=== PATIENT | male | born 1960 | race Caucasian/White ===

== ENCOUNTER → 2017-03-28 | Outpatient (CLI) | payer OTHER ==
[~2017-03-28] MED LIST: NAPR220T70 PO
--- NOTE | 2017-03-28 13:20 | KCIC ---
History: Arthritis. Comparison: None. Findings: Single lateral view of the cervical spine. There is reversal of normal cervical lordosis. There is a 2 mm of anterolisthesis at C3-4, C4-5, and C5-6. Advanced degenerative disc disease seen at C6-7 with almost complete loss of disc space as well as marginal disc osteophyte formation. Multilevel facet degeneration is seen. No prevertebral soft tissue swelling is identified. No erosive changes are identified. AP view of the pelvis. No acute fracture or dislocation is identified. No significant hip degeneration is seen. No erosive changes are identified. PA views of each hand. No erosive changes are identified. No focal soft tissue swelling is seen. No significant degeneration is appreciated. Standing AP views of both knees. No erosive changes are identified. Joint space appears preserved. No significant degeneration is identified. Oblique views of both feet. Erosive changes are seen. No focal soft tissue swelling is identified. Impression: 1. Cervical spinal degeneration. 2. No erosive changes are identified in the visualized joints. Electronically signed by: Mark Mejia MD (03/28/2017 1:17 PM) [place] [id number]
== END | disposition home or self-care (01) ==
LOC: KCIC 11:02
PROVIDERS: ATTEND Internal Medicine Rheumatology
DX: M43.12 Spondylolisthesis, cervical region (principal); M50.323 Other cervical disc degeneration at C6-C7 level
CPT/HCPCS: 72020; 72170; 73120; 73565; 73620

== ENCOUNTER → 2017-12-03 | Outpatient (CLI) | payer OTHER ==
[~2017-12-03] MED LIST changes: +LIDOCAINE WITH 8.4% SOD BICARB 3 ML DISP.SYRIN. INJ; -NAPR220T70 PO
== END | disposition home or self-care (01) ==
LOC: US 08:28
DX: R59.0 Localized enlarged lymph nodes (principal); I10 Essential (primary) hypertension; Z98.890 Other specified postprocedural states
CPT/HCPCS: 19081; 38505; 76942; 88305; 88307; 88341; 88342; 88360

== ENCOUNTER → 2017-12-11 | Outpatient (CLI) | payer OTHER | END | disposition home or self-care (01) | LOC: KCIC US 11:53 | DX: C83.34 Diffuse large B-cell lymphoma, lymph nodes of axilla and upper limb (principal); M79.89 Other specified soft tissue disorders | CPT/HCPCS: 93971 ==

== ENCOUNTER 2017-12-13 08:49 | Day surgery (SDC) | payer OTHER ==
[~2017-12-13 08:49] MED LIST changes: -FLUMAZENIL 0.5 MG/5 ML VIAL. IV; +LIDOCAINE 1% PF 2 ML VIAL. ID; -LIDOCAINE WITH 8.4% SOD BICARB 3 ML DISP.SYRIN.; -MIDAZOLAM HCL/PF 2 MG/2 ML VIAL.; +MORPHINE SULFATE 4 MG/ML DISP.SYRIN. IV; -NALOXONE 0.4 MG/ML VIAL.; +ONDANSETRON PF 4 MG/2 ML VIAL. IV; -fentaNYL PF VIAL 100 MCG/2 ML VIAL; +fentaNYL PF VIAL 100 MCG/2 ML VIAL IV
[2017-12-13 09:24] LABS: ADD MAN DIFF? NO
[2017-12-13 09:27] LABS: BASO # 0.1 x10^3/uL (0.0-0.2); BASO % 1 % (0-3); EOS # 0.1 x10^3/uL (0.0-0.7); EOS % 2 % (0-3); HEMOGLOBIN 16.8 g/dL (13.0-17.5); LYMPH # 1.3 x10^3/uL (1.0-4.8); LYMPH % 19 % (24-48); MEAN CORPUSCULAR HEMOGLOBIN 33 pg (25-35); MEAN CORPUSCULAR HGB CONC 34 g/dL (31-37); MEAN CORPUSCULAR VOLUME 96 fL (79-100); MONO # 0.6 x10^3/uL (0.0-1.1); MONO % 9 % (0-9); NEUT # 4.8 x10^3uL (1.8-7.7); NEUT % 69 % (31-73); PLATELET COUNT 238 x10^3/uL (140-400); RED BLOOD COUNT 5.11 x10^6/uL (4.30-5.70); RED CELL DISTRIBUTION WIDTH 13.3 % (11.5-14.5); WHITE BLOOD COUNT 6.9 x10^3/uL (4.0-11.0)
[2017-12-13] MEDS: IV RINGERS,LACTATED 1000ML 1,000 ML IV ×2 (09:34)
[2017-12-13 09:36] LABS: PROTHROMBIN TIME PATIENT 12.6 SEC (11.7-14.0)
[2017-12-13] MEDS ORDERED: ceFAZolin 2GM PREMIX 2 GM/50 ML BAG IV ×2 (12:00)
[2017-12-13] MEDS ORDERED: DEXAMETHASONE SOD PHOS 20 MG/5 ML VIAL. ×2 (12:08)
[2017-12-13] MEDS ORDERED: fentaNYL PF VIAL 100 MCG/2 ML VIAL ×2 (12:08)
[2017-12-13] MEDS ORDERED: ONDANSETRON PF 4 MG/2 ML VIAL. ×2 (12:08)
[2017-12-13] MEDS ORDERED: SEVOFLURANE 31 TO 60 MINUTES. IH ×2 (12:08)
[2017-12-13] MEDS ORDERED: PROPOFOL 20 ML IV ×2 (12:08)
[2017-12-13] MEDS ORDERED: LIDOCAINE 1% PF 30 ML VIAL. ×2 (12:09)
[2017-12-13] MEDS: HEPARIN SODIUM 5,000 UNIT in IV NORMAL SALINE 500ML BAG 500 ML IRR ×2 (13:45→13:57)
[2017-12-13] MEDS: PROCHLORPERAZINE 10 MG/2 ML VIAL. IV ×2 (14:55)
[2017-12-13] MEDS: fentaNYL PF VIAL 100 MCG/2 ML VIAL IV ×6 (14:56→15:45)
[2017-12-13] MEDS: HYDROcodone/APAP 5/325MG 1 TAB TABLET PO ×2 (15:44)
== END 2017-12-13 16:27 | disposition home or self-care (01) ==
LOC: SURG 08:49
DX: Z45.2 Encounter for adjustment and management of vascular access device (principal); C85.90 Non-Hodgkin lymphoma, unspecified, unspecified site; I10 Essential (primary) hypertension; Z72.89 Other problems related to lifestyle; F17.210 Nicotine dependence, cigarettes, uncomplicated; Z87.442 Personal history of urinary calculi; Z87.39 Personal history of other diseases of the musculoskeletal system and connective tissue; R59.1 Generalized enlarged lymph nodes; Z85.72 Personal history of non-Hodgkin lymphomas
CPT/HCPCS: 36415; 36556; 36561; 71045; 77001; 85025; 85610; 88307; 88341; 88342; 88360; C1788; J0690; J0780; J1100; J1644; J2405; J2704; J3010; J7040; J7120

== ENCOUNTER → 2017-12-13 | Outpatient (CLI) | payer OTHER ==
[~2017-12-13] MED LIST changes: +FLUMAZENIL 0.5 MG/5 ML VIAL. IV; +LIDOCAINE WITH 8.4% SOD BICARB 3 ML DISP.SYRIN.; -LIDOCAINE WITH 8.4% SOD BICARB 3 ML DISP.SYRIN. INJ; +MIDAZOLAM HCL/PF 2 MG/2 ML VIAL.; +NALOXONE 0.4 MG/ML VIAL.; +fentaNYL PF VIAL 100 MCG/2 ML VIAL
[2017-12-13] MEDS: fentaNYL PF VIAL 100 MCG/2 ML VIAL IV (12:15)
[2017-12-13] MEDS: LIDOCAINE WITH 8.4% SOD BICARB 3 ML DISP.SYRIN. IJ (12:15)
[2017-12-13] MEDS: MIDAZOLAM HCL/PF 2 MG/2 ML VIAL. IV (12:15)
== END | disposition home or self-care (01) ==
LOC: INTRAD 08:43
DX: D70.4 Cyclic neutropenia (principal); I10 Essential (primary) hypertension; Z98.890 Other specified postprocedural states; Z72.89 Other problems related to lifestyle; F12.90 Cannabis use, unspecified, uncomplicated; F17.200 Nicotine dependence, unspecified, uncomplicated; Z85.72 Personal history of non-Hodgkin lymphomas; Z87.442 Personal history of urinary calculi
CPT/HCPCS: 38222; 77012; 88184; 88185; 88237; 88305; 88311; 88313; 99152; J2250; J3010

== ENCOUNTER → 2017-12-20 | Outpatient (CLI) | payer OTHER | END | disposition home or self-care (01) | LOC: PETSC 11:30 | DX: C85.14 Unspecified B-cell lymphoma, lymph nodes of axilla and upper limb (principal); K57.30 Diverticulosis of large intestine without perforation or abscess without bleeding; R59.1 Generalized enlarged lymph nodes | CPT/HCPCS: 78815; A9552 ==

== ENCOUNTER → 2017-12-21 | Outpatient (CLI) | payer OTHER | END | disposition home or self-care (01) | LOC: ECHO 09:29 | DX: C85.90 Non-Hodgkin lymphoma, unspecified, unspecified site (principal); R07.89 Other chest pain; R06.02 Shortness of breath | CPT/HCPCS: 93306 ==

== ENCOUNTER → 2018-02-21 | Outpatient (CLI) | payer OTHER ==
[~2018-02-21] MED LIST changes: +CONTRAST GIVEN. MC; -LIDOCAINE 1% PF 2 ML VIAL. ID; -MORPHINE SULFATE 4 MG/ML DISP.SYRIN. IV; -ONDANSETRON PF 4 MG/2 ML VIAL. IV; -fentaNYL PF VIAL 100 MCG/2 ML VIAL IV
[2018-02-21] MEDS: IOHEXOL 300 MG/ML 100ML VIAL. IV (09:42)
== END | disposition home or self-care (01) ==
LOC: CT 09:27
DX: C85.88 Other specified types of non-Hodgkin lymphoma, lymph nodes of multiple sites (principal); M47.892 Other spondylosis, cervical region
CPT/HCPCS: 70491; 71260; Q9967

== ENCOUNTER → 2018-05-02 | Outpatient (CLI) | payer OTHER ==
[2017-12-13 12:22] VITALS: BP 138/85
[~2018-05-02] MED LIST changes: +ALLO300T PO; -CONTRAST GIVEN. MC; +CONTRAST GIVEN. MC PRN; +HYDR-2762 PO; +IOHEXOL 240 MG/ML 50ML VIAL. PO ONE; +IOHEXOL 300 MG/ML 100ML VIAL. IV ONE; +NAPR220T70 PO; +ONDA8TAB9 PO; +PHEN100T82 PO; +RITU10VI IV; +TAMS0.4C97 PO
--- NOTE | 2018-05-02 14:09 | RAD ---
CT NECK CHEST ABD PELVIS W CON Indication: diffuse large b cell lymphoma inj 75ml Omni 300 prev neck/chest sent Exposure: One or more of the following individualized dose reduction techniques were utilized for this examination: 1. Automated exposure control 2. Adjustment of the mA and/or kV according to patient size 3. Use of iterative reconstruction technique. Comparison: Previous CT neck and chest dated February 21, 2018. Contrast: Intravenous contrast was given. Oral contrast was given. NECK: Visualized sinuses: Mild mucosal thickening of the sphenoid sinus. Mild ethmoid sinus mucosal thickening. Visualized orbits: Unremarkable Vessels: Unremarkable Parotid glands: Unremarkable Submandibular glands: Unremarkable Airway: Patent and midline Parapharyngeal tissues: Symmetric and unremarkable Lymph nodes: Several small cervical lymph nodes are again identified and are stable. No pathologic lymph node enlargement is seen. Small left supraclavicular lymph node measures 7 mm short axis, stable. Thyroid: Symmetric Upper thorax: Lungs are clear Soft tissues: Unremarkable Mandible/maxilla: Unremarkable Cervical spine: Degenerative spondylosis, greatest at C6-C7, appears similar. Impression: Stable exam, no evidence of new mass or new lymph node enlargement. CHEST: Thoracic aorta: No evidence of aneurysm. Heterogeneity at the ascending aorta, likely due to pulsatility artifact. Pulmonary arteries:Main central arteries appear patent. Lymph nodes: Small left axillary lymph nodes are identified. These have decreased in size since the prior exam. A residual lymph node in the left axilla on image 14 measures 11 mm short axis compared with 14 mm on prior similar slice. Heart: No significant pericadial effusion. Esophagus: Unremarkable Pleural spaces: No significant effusion Lungs: Previously seen nodule in the superior segment of the right lower lobe has resolved. No new pulmonary mass. Trachea and central airways: Patent Spine: Minimal left convexity upper thoracic scoliosis. Mild degenerative spondylosis. Bones: No destructive process. Impression: 1. Improvement in left axillary lymph nodes. 2. Previously seen right lower lobe nodule has resolved. ABDOMEN PELVIS: Liver: Several tiny hypodense subcentimeter lesions are identified, appears similar as well was seen on the upper abdominal slices from the prior chest CT scan. Spleen: Unremarkable Pancreas: Unremarkable Adrenals:No evidence of mass. Kidneys: Several tiny nonobstructive intrarenal calculi. There is a calculus within the right renal pelvis which measures 11 mm diameter without evidence of obstruction. Tiny nonobstructive calculi in the left kidney. Kidneys enhance symmetrically. Gallbladder: No calcified stone Aorta: No aneurysm. Lymph nodes: Small aortocaval lymph nodes are identified, measuring up to 8 mm short axis. GI tract: Colonic diverticulosis. No definite evidence of acute colitis. No evidence of bowel obstruction. Appendix is normal. Reproductive organs: Prostate gland is mildly enlarged, measuring 4.9 cm transverse. Urinary bladder: Borderline wall thickening, may be due to incomplete distention. Mild chronic outlet obstruction could be considered. Peritoneum: No evidence of pneumoperitoneum. No free fluid. Abdominal wall:Unremarkable Spine: Degenerative spondylosis, greatest at the lower lumbar levels. Bones: No destructive lesion. Impression: 1. Several tiny subcentimeter liver lesions, nonspecific but unchanged. 2. Small retroperitoneal lymph nodes, may be reactive, measure up to 8 mm short axis. 3. Mild urinary bladder wall thickening, could be due to chronic outlet obstruction or incomplete distention. Correlate for cystitis. 4. Mild prostatomegaly. Electronically signed by: Mark Lucero MD (05/02/2018 2:06 PM) [facility]
== END | disposition home or self-care (01) ==
LOC: CT 12:11
PROVIDERS: ATTEND Internal Medicine Hematology & Oncology
DX: C83.34 Diffuse large B-cell lymphoma, lymph nodes of axilla and upper limb (principal); N40.0 Benign prostatic hyperplasia without lower urinary tract symptoms; K76.9 Liver disease, unspecified; M47.896 Other spondylosis, lumbar region; K57.30 Diverticulosis of large intestine without perforation or abscess without bleeding; N20.0 Calculus of kidney; M41.84 Other forms of scoliosis, thoracic region; M47.892 Other spondylosis, cervical region; M47.894 Other spondylosis, thoracic region; R59.0 Localized enlarged lymph nodes
CPT/HCPCS: 70491; 71260; 74177; Q9966; Q9967

== ENCOUNTER → 2018-06-04 | Outpatient (CLI) | payer OTHER ==
[2018-05-06 07:00] VITALS: BP 161/92
[~2018-06-04] MED LIST changes: -CONTRAST GIVEN. MC PRN; -IOHEXOL 240 MG/ML 50ML VIAL. PO ONE; -IOHEXOL 300 MG/ML 100ML VIAL. IV ONE; +OMEP20TA63 PO
--- NOTE | 2018-06-04 15:41 | RAD ---
KUB Clinical indications: Right ureteral stent. Consideration for removal. FINDINGS: Right ureteral stent is in place. The proximal pigtail is seen within the region of the mid aspect of the right kidney and the distal pigtail is seen within the mid aspect of the urinary bladder. There is a possible proximal right ureteral stone measuring 3 mm in size adjacent to the right ureteral stent at the level of the L2 transverse process. Multiple radiopaque stones of the lower pole of the right kidney are seen the largest of which measures 9 mm. Multiple small opaque stones of the lower pole of left kidney are seen. The largest measures 3 mm. No obstructive bowel pattern is evident. IMPRESSION: Right ureteral stent in place. There is a possible 3 mm radiopaque stone within the proximal right ureter adjacent to the stent at the L2 transverse process level. Electronically signed by: Emre Coughlin MD (06/04/2018 3:38 PM) [facility]
== END | disposition home or self-care (01) ==
LOC: RAD 10:15
PROVIDERS: ATTEND Urology
DX: N20.0 Calculus of kidney (principal); Z87.891 Personal history of nicotine dependence
CPT/HCPCS: 74018

== ENCOUNTER → 2018-06-11 | Day surgery (SDC) | payer OTHER ==
[~2018-06-11] VITALS: Ht 182.9 cm; Wt 90.7 kg
[~2018-06-11] MED LIST changes: +DEXAMETHASONE SOD PHOS 20 MG/5 ML VIAL. ONE; +HYDROcodone/APAP 5/325MG 1 TAB TABLET ONE; +HYDROcodone/APAP 5/325MG 1 TAB TABLET PO ONE; +HYDROmorphone 2 MG/ML VIAL IV PRN; +HYDROmorphone 2 MG/ML VIAL ONE; +IOHEXOL 300 MG/ML 100ML VIAL. ONE; +IV RINGERS,LACTATED 1000ML 1,000 ML IV SCH; +KETOROLAC 30 MG/ML VIAL. IM ONE; +KETOROLAC 30 MG/ML VIAL. IV ONE; +KETOROLAC 30 MG/ML VIAL. ONE; +LIDOCAINE 1% PF 2 ML VIAL. ID PRN; +MIDAZOLAM HCL/PF 2 MG/2 ML VIAL. ONE; +MORPHINE SULFATE 2 MG/ML VIAL. IV PRN; +ONDANSETRON PF 4 MG/2 ML VIAL. IV PRN; +ONDANSETRON PF 4 MG/2 ML VIAL. ONE; +PROCHLORPERAZINE 10 MG/2 ML VIAL. IV PRN; +SEVOFLURANE 61 TO 120 MINUTES. IH ONE; +fentaNYL PF VIAL 100 MCG/2 ML VIAL IV PRN; +fentaNYL PF VIAL 100 MCG/2 ML VIAL ONE
--- NOTE | 2018-06-11 15:34 | PDOC ---
BRIEF OPERATIVE NOTE Date: Jun 11, 2018 Pre-Op Diagnosis right ureteral stone Post-Op Diagnosis right renal stone Procedure Performed cysto, RIGHT: retrograde pyelogram, ureteroscopy, laser lithotripsy, ureteral stent exchange Surgeon Radha Ronquillo Community Development Coordinator None Anesthesia Type: General Blood Loss <5 cc Specimens Obtained renal stone Findings as dictated Complications none Operative Note Dictation # [id number] RADHA RONQUILLO MD Jun 11, 2018 15:34
--- NOTE | 2018-06-11 15:36 | DISCH ---
DISCHARGE INSTRUCTIONS Condition on Discharge Condition on Discharge: Stable Activity After Discharge Activity Instructions for Disc: No restrictions Driving Instructions after Dis: Do not drive today, Other, see below (Or while taking narcotic pain medication) Diet after Discharge Diet after Discharge: Regular Wound Incision Care Wound/Incision Care: Other, see below (Remove your ureteral stent as previously directed on Sunday morning ) Contacting the [facility] after DC Call your doctor for: Fevers, pain, heavy bleeding, trouble urinating other concerns Follow-Up Follow up with: Dr. Ronquillo in 3 week. Please call to schedule. RADHA RONQUILLO MD Jun 11, 2018 15:36
--- NOTE | 2018-06-11 15:50 | OP ---
DATE OF SURGERY: 06/11/2018 PREOPERATIVE DIAGNOSIS: Obstructing proximal ureteral stone. POSTOPERATIVE DIAGNOSIS: Right renal stone. PROCEDURE PERFORMED: 1. Cystourethroscopy. 2. Right: Retrograde pyelogram, ureteroscopy, laser lithotripsy, ureteral stent exchange. ANESTHESIA: General. COMPLICATIONS: None. BLOOD LOSS: Less than 5 mL. INDICATIONS FOR PROCEDURE: The patient is a 58-year-old male who presented late last month with renal colic secondary to a large obstructing ureteral stone. He underwent stent placement at the time with plans for definitive ESWL. However, his stone failed to fully fragment during the ESWL and he elected to proceed with the above-mentioned procedures. DESCRIPTION OF PROCEDURE: The patient was seen in the preoperative holding area where his procedure, risks, benefits, and alternatives were reviewed in detail. Informed consent was obtained. He was brought back to the operating room and placed supine on the operating table. A timeout was called, identifying the correct patient, procedure, preoperative antibiotics and right-sided laterality. All members of surgical team were in agreement. General anesthesia was induced and he was repositioned into dorsal lithotomy and prepped and draped in a sterile fashion. A 21-Italian rigid cystoscope was placed atraumatically through his urethra into his bladder. The stent in question was identified and externalized to his urethral meatus. Through the stent a wire was fed up to the renal pelvis under fluoroscopic guidance. The scope was returned to the bladder. A second working wire was advanced from the ureteral orifice up to the kidney under fluoroscopy. The bladder was emptied and the scope was removed. Over one wire, a 12/14 Italian x 46 cm ureteral access sheath was placed into the proximal ureter. This went very easily. Next, pyeloscopy was performed identifying multiple large stone fragments. Using a 200 micron holmium laser these were dusted. Any larger pieces were then basketed out and sent to pathology labeled right renal stone. On final inspection, there were no large stone fragments remaining. The access sheath was looked out and no stones or trauma was noted within the ureter. The cystoscope was replaced and the bladder inspected. No trauma was noted within the bladder. The bladder was emptied and the scope was removed under direct vision. Over the wire and using fluoroscopic guidance, a 6-Italian x 26-cm double-J ureteral stent on a string was placed. Good proximal and distal positioning was noted within the kidney and bladder respectively. The string was then tegadermed to his penis. He was awoken and transferred to the PACU in stable condition with plans for outpatient followup in approximately 3 weeks. RADHA RONQUILOL MD DR: GREGG/roxann JOB#: [id number] / [id number]
[2018-06-11] MEDS: fentaNYL PF VIAL 100 MCG/2 ML VIAL IV PRN ×4 (16:16→16:36)
[2018-06-11 17:52] VITALS: BP 145/88
== END | disposition home or self-care (01) ==
LOC: SURG 11:50
PROVIDERS: ATTEND Urology
DX: N20.0 Calculus of kidney (principal); Z98.890 Other specified postprocedural states
CPT/HCPCS: 52356; 74420; A7015; C1769; C1776; C2617; J0690; J1100; J1170; J1885; J2250; J2405; J3010; Q9967

== ENCOUNTER → 2018-08-14 | Outpatient (CLI) | payer OTHER ==
[2018-06-11 17:52] VITALS: BP 145/88
[~2018-08-14] MED LIST changes: +CONTRAST GIVEN. MC PRN; -DEXAMETHASONE SOD PHOS 20 MG/5 ML VIAL. ONE; -HYDR-2762 PO; +HYDR-2765 PO; -HYDROcodone/APAP 5/325MG 1 TAB TABLET ONE; -HYDROcodone/APAP 5/325MG 1 TAB TABLET PO ONE; -HYDROmorphone 2 MG/ML VIAL IV PRN; -HYDROmorphone 2 MG/ML VIAL ONE; +IOHEXOL 240 MG/ML 50ML VIAL. PO ONE; +IOHEXOL 300 MG/ML 100ML VIAL. IV ONE; -IOHEXOL 300 MG/ML 100ML VIAL. ONE; -IV RINGERS,LACTATED 1000ML 1,000 ML IV SCH; -KETOROLAC 30 MG/ML VIAL. IM ONE; -KETOROLAC 30 MG/ML VIAL. IV ONE; -KETOROLAC 30 MG/ML VIAL. ONE; -LIDOCAINE 1% PF 2 ML VIAL. ID PRN; -MIDAZOLAM HCL/PF 2 MG/2 ML VIAL. ONE; -MORPHINE SULFATE 2 MG/ML VIAL. IV PRN; -ONDANSETRON PF 4 MG/2 ML VIAL. IV PRN; -ONDANSETRON PF 4 MG/2 ML VIAL. ONE; -PROCHLORPERAZINE 10 MG/2 ML VIAL. IV PRN; -SEVOFLURANE 61 TO 120 MINUTES. IH ONE; -fentaNYL PF VIAL 100 MCG/2 ML VIAL IV PRN; -fentaNYL PF VIAL 100 MCG/2 ML VIAL ONE
--- NOTE | 2018-08-14 15:04 | RAD ---
CT of the chest, abdomen, and pelvis with contrast 08/14/2018 INDICATION: History of lymphoma. COMPARISON STUDY: CT of the chest abdomen and pelvis May 02, 2018. TECHNIQUE: Multidetector CT imaging of the chest, abdomen, and pelvis was performed following the administration of IV contrast. FINDINGS:. CHEST: Heart size is normal. No significant pericardial effusion is identified. No pathologically enlarged mediastinal lymph nodes are seen. Mild inflammatory changes seen in the left axilla. Small minimally prominent lymph nodes are noted in the left axilla largest measuring 8 mm in diameter, unchanged from prior exam. No pneumothorax, pleural effusion, or focal consolidative infiltrate is seen. No pulmonary masses are identified. Bony thorax is intact. Degenerative changes at the inferior cervical spine are noted. Abdomen pelvis: Several small hepatic hypodensities are noted involving the anterior left and right liver. These are too small to characterize similar to prior exam. The spleen is unremarkable. Adrenal glands are unremarkable. Pancreas is unremarkable. Punctate nonobstructing nephrolithiasis is seen bilaterally, similar to prior exam. However the larger stone seen in the right renal pelvis is no longer visualized. No hydronephrosis or evidence of acute obstructive uropathy is seen. Stomach is grossly unremarkable in appearance without gross evidence of gastric wall thickening. There is no evidence of bowel obstruction. No acute inflammatory change involving the bowel are identified. Descending and sigmoid colonic diverticulosis noted. No pathologically enlarged intra-abdominal or pelvic adenopathy is identified. Small retroperitoneal lymph nodes are decreased in prominence in the interim prior study. No evidence of acute osseous abnormality is seen. Compression deformity of the L1 vertebral body again seen. A central Schmorl's type herniation has progressed in the interim. Correlate with focal back pain. Impression: 1. Stable appearance of the chest abdomen and pelvis. 2. Several subcentimeter liver lesions, too small adequately characterize, but stable in appearance. 3. Bilateral nephrolithiasis. Large stone in the right renal pelvis is no longer visualized. CT DOSING PQRS STATEMENT: One or more of the following individualized dose reduction techniques were utilized for this examination: 1. Automated exposure control 2. Adjustment of the mA and/or kV according to patient size 3. Use of iterative reconstruction technique Electronically signed by: Rodolfo Jarrett MD (08/14/2018 3:00 PM) [id number]
== END | disposition home or self-care (01) ==
LOC: CT 07:59
PROVIDERS: ATTEND Internal Medicine Hematology & Oncology
DX: K76.89 Other specified diseases of liver (principal); N20.0 Calculus of kidney; K57.30 Diverticulosis of large intestine without perforation or abscess without bleeding; M51.36 Other intervertebral disc degeneration, lumbar region; Z85.72 Personal history of non-Hodgkin lymphomas
CPT/HCPCS: 71260; 74177; Q9966; Q9967

== ENCOUNTER → 2018-11-13 | Outpatient (CLI) | payer OTHER ==
[2018-06-11 17:52] VITALS: BP 145/88
--- NOTE | 2018-11-13 12:53 | RAD ---
CT of the chest, abdomen and pelvis with contrast, 11/13/2018: HISTORY: B-cell lymphoma Multidetector CT imaging was performed following oral and IV administration of contrast. Comparison is made to a study from 08/14/2018. There is a 1.1 x 0.8 cm left axillary lymph node which is unchanged. By size criteria it is not considered to be pathologically enlarged. No right axillary, mediastinal or hilar adenopathy is seen. A 2 mm left apical nodular opacity is unchanged. No pulmonary infiltrate or pleural fluid is evident. Several tiny subcentimeter low-density lesions in the anterior aspect of the liver are unchanged. These are too small to definitively characterize but are likely cysts or hepatic hamartomas. The gallbladder is unremarkable. No pancreatic abnormality is seen. The spleen is of normal size. Several tiny nonobstructing calculi are seen in both kidneys. There is a probable tiny subcentimeter cyst in the lower pole of the right kidney. The kidneys show no evidence of obstruction. No adrenal abnormality is detected. There is minimal aortoiliac calcific plaquing. No abdominal, pelvic or inguinal adenopathy is evident. Colonic diverticula are present, most numerous in the sigmoid region. The bowel loops are not dilated. No free fluid is evident in the abdomen or pelvis. Moderate scattered degenerative changes are again noted in the spine. IMPRESSION: 1. No evidence of recurrent lymphoma in the chest, abdomen or pelvis. 2. Stable tiny subcentimeter hepatic lesions which are most likely benign. 3. Tiny nonobstructing bilateral intrarenal calculi. 4. Colonic diverticulosis. PQRS Compliance Statement: One or more of the following individualized dose reduction techniques were utilized for this examination: 1. Automated exposure control 2. Adjustment of the mA and/or kV according to patient size 3. Use of iterative reconstruction technique Electronically signed by: Sb Dimas MD (11/13/2018 12:50 PM) [facility]
== END | disposition home or self-care (01) ==
LOC: CT 09:53
PROVIDERS: ATTEND Internal Medicine Hematology & Oncology
DX: C83.34 Diffuse large B-cell lymphoma, lymph nodes of axilla and upper limb (principal); N20.0 Calculus of kidney; K57.30 Diverticulosis of large intestine without perforation or abscess without bleeding; K76.89 Other specified diseases of liver; M25.512 Pain in left shoulder
CPT/HCPCS: 71260; 74177; Q9966; Q9967

== ENCOUNTER → 2019-04-29 | Outpatient (CLI) | payer OTHER ==
[2018-06-11 17:52] VITALS: BP 145/88
[~2019-04-29] MED LIST changes: -CONTRAST GIVEN. MC PRN; +CYCL10TA2 PO; +GADOTERATE 5 MMOL/10ML VIAL. IVP ONE; -IOHEXOL 240 MG/ML 50ML VIAL. PO ONE; -IOHEXOL 300 MG/ML 100ML VIAL. IV ONE; +PRED20TA PO
--- NOTE | 2019-04-29 13:07 | KCIC ---
MRI of the cervical spine without and with contrast 04/29/2019 CLINICAL HISTORY: Neck pain. Numbness involving the left arm and left thumb. History of lymphoma. TECHNIQUE: Unenhanced T1-weighted, T2-weighted and inversion recovery sagittal and gradient echo, T2-weighted and T1-weighted axial images of the cervical spine were obtained. After the intravenous administration of 18 cc of Dotarem, enhanced T1-weighted sagittal and axial images of the cervical spine were obtained. FINDINGS: Mild lateral curvature of the cervical spine is seen convex to the right. There is reversal of the normal cervical lordosis. Degenerative signal changes are seen involving all of the disks of the cervical spine. Loss of height of the C6-7 disc is noted. Degenerative signal changes are seen within the marrow surrounding this disc. No area of abnormal signal intensity is seen involving the cervical spinal cord. No area of abnormal contrast enhancement is seen. At the C2-3 disc space there is a mild generalized disc bulge. Superimposed on this disc bulge is a left paracentral disc osteophyte complex. This measures 3.5 mm in AP diameter. Degenerative changes are seen involving the uncovertebral and facet joints bilaterally. These findings do not result in significant central spinal canal or neural foraminal stenosis. At the C3-4 disc space there is a mild generalized disc bulge. This is eccentric to the left. Degenerative changes are seen involving the uncovertebral and facet joints, left greater than right. These findings when combined do not result in significant central spinal canal stenosis. Mild to moderate left neural foraminal stenosis is seen. The right neural foramen is patent. At the C4-5 disc space there is a mild to moderate generalized disc bulge. Degenerative changes are seen involving the uncovertebral and facet joints bilaterally. These findings when combined do not result in significant central spinal canal stenosis. Mild left neural foraminal stenosis is seen. The right neural foramen is patent. At the C5-6 disc space there is a mild generalized disc bulge. This is eccentric to the right. Degenerative changes are seen involving the uncovertebral and facet joints, right greater than left. These findings when combined efface the anterior CSF resulting in mild central spinal canal stenosis without evidence of cord impingement. Mild right neural foraminal stenosis is seen. The left neural foramen is patent. At the C6-7 disc space there is a mild to moderate generalized disc bulge. Superimposed on this disc bulge is a central/right paracentral disc osteophyte complex. This measures 3.5 mm in AP diameter. Degenerative changes are seen involving the uncovertebral and facet joints, left greater than right. These findings when combined efface the anterior CSF resulting in mild to moderate left greater than right central spinal canal stenosis with mild cord impingement. Mild to moderate left greater than right neural foraminal stenosis is seen. At the C7-T1 disc space there is a mild generalized disc bulge. Degenerative changes are seen involving the facet joints bilaterally. These findings when combined do not result in significant central spinal canal stenosis. No neural foraminal stenosis is seen. IMPRESSION: Degenerative changes are seen throughout the cervical spine. These findings result in mild central spinal canal stenosis without evidence of cord impingement at C5-C6 and mild to moderate left greater than right central spinal canal stenosis with mild cord impingement at C6-7. Mild to moderate left neural foraminal stenosis is seen at C3-4. Mild left neural foraminal stenosis is seen at C4-5. Mild right neural foraminal stenosis is seen at C5-6. Mild to moderate left greater than right neural foraminal stenosis is seen at C6-7. Electronically signed by: Cooper Mcbride MD (04/29/2019 1:04 PM) [facility]
--- NOTE | 2019-04-29 13:26 | KCIC ---
MRI of the thoracic spine without and with contrast 04/29/2019 CLINICAL HISTORY: Mid back pain. History of non-Hodgkin's lymphoma. TECHNIQUE: Unenhanced T1-weighted and T2-weighted sagittal and axial and inversion recovery sagittal images of the thoracic spine were obtained. After the intravenous administration of 18 cc of Dotarem, enhanced T1-weighted sagittal and axial images of the thoracic spine were obtained. T2-weighted sagittal images of the cervical, thoracic and lumbar spine were obtained for localization purposes. Minimal S-shaped curvature of the thoracolumbar spine is seen. Degenerative signal changes are seen involving all of the disks of the thoracic spine. Degenerative signal changes are seen within the marrow surrounding these discs. No area of abnormal signal intensity is seen involving the thoracic spinal cord. No area of abnormal contrast enhancement is seen. Degenerative changes are seen throughout the thoracic disc spaces consisting of minimal to mild generalized disc bulges and degenerative changes involving the facet joints. At the T2-3 disc space a left lateral disc osteophyte complex is seen which measures 6 mm in AP diameter. These findings do not result in significant central spinal canal stenosis. Mild left neural foraminal stenosis is seen at T2-3. IMPRESSION: Degenerative changes are seen involving the thoracic spine as discussed above. These findings do not result in significant central spinal canal stenosis at any level. Mild left neural foraminal stenosis is seen at T2-3. Electronically signed by: Cooper Mcbride MD (04/29/2019 1:22 PM) [facility]
== END | disposition home or self-care (01) ==
LOC: KCIC MRI 09:05
PROVIDERS: ATTEND Physician Assistant Medical
DX: M48.02 Spinal stenosis, cervical region (principal); M47.894 Other spondylosis, thoracic region; M47.892 Other spondylosis, cervical region; R20.0 Anesthesia of skin; M25.78 Osteophyte, vertebrae; Z85.72 Personal history of non-Hodgkin lymphomas; Z85.89 Personal history of malignant neoplasm of other organs and systems
CPT/HCPCS: 72156; 72157; A9575

== ENCOUNTER → 2019-05-30 | Outpatient (CLI) | payer OTHER ==
[2018-06-11 17:52] VITALS: BP 145/88
[~2019-05-30] MED LIST changes: -GADOTERATE 5 MMOL/10ML VIAL. IVP ONE
--- NOTE | 2019-05-30 09:54 | RAD ---
CLINICAL HISTORY: LYMPHOMA INDICATION: Lymphoma COMPARISON: CT chest abdomen and pelvis November 13, 2018. PET/CT December 20, 2017. TECHNIQUE: Location of scan: [facility] Dose: 15 mCi F-18 FDG intravenous Blood glucose at time of study: 133 FDG uptake time = 60 minutes. Images were obtained from the top of the head to the mid thighs. A low dose, noncontrast CT study was performed for the purpose of attenuation correction and anatomic localization. FINDINGS: Head and Neck: Normal physiologic uptake within the head and neck. Intracranial contents are unremarkable. No pathologic lymphadenopathy within the neck. Physiologic uptake within the brain and laryngeal structures. Chest: Small left axillary lymph node measures 0.9 x 0.7 cm, unchanged. No significant metabolic activity. No mediastinal or axillary pathologic lymphadenopathy. No hypermetabolic pulmonary nodules. Bilateral lower lobe and lingular subsegmental atelectasis. Previously described focal FDG uptake within the right atrium and is not identified on the current examination. Physiologic cardiac activity. Abdomen and Pelvis: Small hepatic hypodensities, unchanged compared to prior, too small to further characterize and too small to evaluate on PET. The spleen, adrenal glands, pancreas, and gallbladder are unremarkable. No hydronephrosis. Punctate nonobstructing renal calculi bilaterally. Colonic diverticulosis. No evidence of diverticulitis. Normal appendix. No pathologic lymphadenopathy. No ascites. No evidence of bowel obstruction. Physiologic uptake within the liver, bowel, renal collecting system and urinary bladder. Skeletal: No hypermetabolic pathologic osseous lesion. Reference SUV Values: Mediastinal SUV Max: 2.8 Liver SUV Max: 3.4 IMPRESSION: 1. No hypermetabolic lymphadenopathy within the neck, chest or abdomen and pelvis. 2. Small left axillary lymph node, unchanged. 3. Unchanged small hepatic lesions, too small to further characterize. 4. Small nonobstructing renal calculi.
== END | disposition home or self-care (01) ==
LOC: PETSC 07:09
PROVIDERS: ATTEND Internal Medicine Hematology & Oncology
DX: C83.34 Diffuse large B-cell lymphoma, lymph nodes of axilla and upper limb (principal); K57.30 Diverticulosis of large intestine without perforation or abscess without bleeding; G51.0 Bell's palsy; J98.11 Atelectasis; N20.0 Calculus of kidney; K76.9 Liver disease, unspecified; M54.5 Low back pain
CPT/HCPCS: 78815; A9552

== ENCOUNTER → 2019-06-19 | Outpatient (CLI) | payer OTHER ==
[2018-06-11 17:52] VITALS: BP 145/88
--- NOTE | 2019-06-19 23:47 | PAIN ---
DATE OF SERVICE: 06/19/2019 INITIAL CONSULTATION FOR PAIN CLINIC CHIEF COMPLAINT: Neck and left upper extremity pain. HISTORY OF PRESENT ILLNESS: The patient is a 59-year-old male who presents with history of pain in the base of neck and the left upper extremity for about 3 months now. There is not any specific injury or action he is aware of, just came up over time, has had significant pain in the left arm now and shoulder. The patient has a history, over the summer, of Flores's palsy, which started on the left side, but now changed to the right side on his face with some droop still present, but the pain is separate from this and has come up just after the Flores's palsy started and resolved on the left. The patient reports now the pain is constant, stabbing, shooting, intermittent in intensity, but always present, changes during the day with activity, worse with weightbearing, raising his arm over his head on the left side, repetitive motions, reaching forward, driving, using the steering wheel with his left hand with some tingling and numbness in the arm as well and tingling in the hand, where he is having difficulty dropping items and difficulty with fine motor movements as well, but no overt muscular loss. The patient reports it awakens him from sleep about every 4-5 times at night, does not affect his bowel or bladder control, but does affect his ability to walk. He feels that he is off balance. The patient has had physical therapy with some manipulations of the cervical spine, which he reports, did help, but only briefly. He tried prednisone, hydrocodone and also gabapentin, all of which helped briefly as well, but not any long lasting pain relief. The patient reports his disability rating from 0-10, 10 being at worst, is a 5 with family home responsibilities, social activity, occupation and sexual behavior, self-care and life support activities. The patient did have MRI scan of the cervical spine, showed degenerative changes throughout with C4-C5, C5-C6, C6-C7 with disk bulge. C6-C7 shows superimposed disk bulge, central, right paracentral disk osteophyte complex and moderate left greater than right central spinal canal stenosis with mild cord impingement at this level as well. The patient is still doing stretching and strengthening exercises from the physical therapy and still taking the prednisone for the Flores's palsy, which he reports does help the pain moderately as well. 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 PREVIOUS SURGERY: Includes tumor excision in 2018. PEG tube insertion and removal in 2018, cervical laminectomy in and right knee surgery in the . CURRENT MEDICATIONS: Include prednisone, hydrocodone, gabapentin, Prilosec. ALLERGIES: The patient has no known drug allergies. FAMILY HISTORY: Significant for no major medical problems or conditions that he is aware of. SOCIAL HISTORY: The patient does not drink alcohol currently. He has it in the past. Does use marijuana daily. Also, history of cigarette smoking 1 pack a day for the past 50 years, continues to smoke. The patient is , lives with his spouse, lives locally in [place], [place]. REVIEW OF SYSTEMS: The patient's review of systems is positive for those items mentioned in history of present illness. All systems reviewed and otherwise negative. It is complete, full and well documented on the patient's chart. PHYSICAL EXAMINATION: VITAL SIGNS: The patient's blood pressure is 151/106, pulse 121, respirations 18, temperature 98.2 degrees Fahrenheit, height is 6 feet, weight is 195 pounds. GENERAL: The patient is awake, alert, oriented, appropriate, very pleasant demeanor. HEENT: Head shows normocephalic, atraumatic. Extraocular movements are intact and symmetrical. Oral cavity: Mucous membranes moist and pink. Dentition is intact. NECK: Shows anterior throat supple without palpable lymphadenopathy noted. Swallow reflex is symmetrical. CHEST: Shows normal on inspection. Breath sounds clear to auscultation bilaterally. HEART: Shows S1, S2 clear. No murmurs auscultated. ABDOMEN: Soft, nontender, nondistended. BACK: Shows spine grossly in the midline. Cervical paraspinous muscle shows symmetrical on inspection, on palpation some mild tenderness inferiorly in the cervical paraspinous muscles, more on the left than the right, but present bilaterally. The patient has good rotational motion with some moderate tenderness with far left lateral rotation past 45 degrees closer to 90 degrees with some pain in the left shoulder radiating into the lateral deltoid. This is decreased with central rotation as well as extension and flexion, is nontender bilaterally. EXTREMITIES: The patient's upper extremities show deep tendon reflexes at 2+ in the biceps, triceps tendons. Motor exam is approximately 4 on a scale of 5 with left tractor operator laser leveling strength, bicep and tricep flexion and 5/5 on the right. Peripheral pulses are 2+ radial. No peripheral edema is noted. Upper extremities are warm and dry to touch, equal in color and appearance with tattooing on both forearms as noted. Shoulder shrug is strong and intact without loss of strength on resistance with some moderate pain reported in the left. This is true with abduction of shoulder to 90 degrees as well with pain in the left side, but not on the right, but no loss of strength on resistance bilaterally. The patient's skin shows warm and dry, good turgor. No edema. No sores, rashes or bruising throughout. IMPRESSION: 1. This is a 59-year-old male with approximate 3-month history of increasing pain, base of the neck, left upper extremity in a radicular fashion following a C6-C7 dermatomal distribution. 2. Cigarette smoking. 3. Marijuana use. 4. Arthritis. 5. Dizziness. 6. Non-Hodgkin's lymphoma history. PLAN: Options were discussed with the patient including conservative medical managements, continued physical therapies and interventional techniques. He would like to pursue interventional techniques, as he is still doing physical therapy and exercises daily and taking anti-inflammatories without significant improvement. We discussed a cervical epidural steroid injection using description as well as anatomical models to describe the procedure. The patient will wait for preauthorization with his insurance provider. Once this is obtained, we will plan on cervical epidural steroid injection at that time, C6-C7 level for his clinical left C6-C7 radiculopathy. The patient will return to clinic as scheduled. We will plan on cervical epidural steroid injection at that time. MIKE LIMA MD DR: NACHO/roxann JOB#: [id number] / [id number]
== END | disposition home or self-care (01) ==
LOC: PNCL 10:57
PROVIDERS: ATTEND Anesthesiology
DX: M79.602 Pain in left arm (principal); G51.0 Bell's palsy; F17.210 Nicotine dependence, cigarettes, uncomplicated; F32.9 Major depressive disorder, single episode, unspecified; F12.90 Cannabis use, unspecified, uncomplicated; M19.90 Unspecified osteoarthritis, unspecified site; Z79.899 Other long term (current) drug therapy; Z85.72 Personal history of non-Hodgkin lymphomas; Z79.891 Long term (current) use of opiate analgesic; Z92.21 Personal history of antineoplastic chemotherapy
CPT/HCPCS: G0463

== ENCOUNTER → 2019-07-07 | Outpatient (CLI) | payer OTHER ==
[2019-07-07 12:34] VITALS: BP 137/86
[2019-07-07 12:55] VITALS: BP 138/86
--- NOTE | 2019-07-07 13:39 | NUR ---
discharge instructions reviewed with patient.Pt home with family
[2019-07-07 13:58] LABS: CSF PROTEIN 88.2 mg/dL (15.0-45.0)
[2019-07-07 15:38] LABS: CSF CLARITY CLEAR; CSF COLOR COLORLESS; CSF MON % 100 %; CSF RBC COUNT 3 /cmm (Not Established); CSF WBC COUNT 9 /cmm (Not Established)
--- NOTE | 2019-07-07 15:40 | RAD ---
Examination: LUMBAR PUNCTURE History: Non-Hodgkin's lymphoma. Neuritis. Flores's palsy. Left arm paresthesias. Comparison/Correlation: None Findings: Risks and benefits of lumbar puncture under fluoroscopic guidance were discussed with the patient and informed consent was obtained. Fluoroscopy was utilized for 0.4 minutes. A total of 4 images were acquired. The patient was placed in the FAROESE position. Placement of a needle at the L3-4 level was selected. Cleansing with Betadine was performed. Sterile drapes were placed. A total of 3.5 cc 1 percent lidocaine was administered subcutaneously and more deeply toward the thecal sac under fluoroscopic guidance. An 18-gauge needle was placed. A 25-gauge Reginaldo spinal needle was placed through the 18-gauge needle into the thecal sac. The patient was placed in the reverse Trendelenburg position. A total of 10.5 cc clear CSF was withdrawn and placed in 4 separate vials in varying quantities. Much of the CSF was aspirated utilizing a 6 cc syringe due to the slow flow of CSF. Additional CSF could not be withdrawn successfully. The patient tolerated the procedure well without immediate complications. Impression: Successful withdrawal of 10.5 cc clear CSF which was then sent to lab in varying quantities within 4 separate vials. Electronically signed by: Gutierrez Durand MD (07/07/2019 3:37 PM) [facility]
--- NOTE | 2019-07-08 11:07 | PATHOLOGY ---
Note [facility] Accession Number: [id number] TESTS RESULT FLAG UNITS REF RANGE LAB Clinician Provided Cytology Information No. of containers..01 Other (Miscellaneous) Source: CSF DIAGNOSIS: 02 CSF NEGATIVE FOR MALIGNANT CELLS. FEW SMALL LYMPHOCYTES IDENTIFIED. Signed out by: 02 Miguel Pineda MD, Pathologist NPI- [id number] Performed by: Leona Ortega, Complaint Investigator ([facility]) Gross description: 01 2 ML, COLORLESS, CLEAR /LCS 07/07/2019 1732 Local FLAG LEGEND: L-Low Normal,H-High Normal,LL-Alert Low,HH-Alert High <-Panic Low,>-Panic High,A-Abnormal,AA-Critical Abnormal Performed at: [address] [place] [address] Mike Romano MD, 02 [address] [facility] [address] [place] [address] Miguel Pineda MD, Performed at: [address], [place], [place] [id number] MD Mike Romano MD Phone: [phone]
[2019-07-09 15:11] LABS: ALBUM 3.5 g/dL (2.9-4.4); ALPHA 1 0.4 g/dL (0.0-0.4); ALPHA 2 0.9 g/dL (0.4-1.0); BETA 1.4 g/dL (0.7-1.3); GAMMA 0.7 g/dL (0.4-1.8); PROTEIN TOTAL 6.9 g/dL (6.0-8.5)
[2019-07-09 20:08] LABS: ANA INTERP Negative (.)
== END | disposition home or self-care (01) ==
LOC: RAD 15:54
PROVIDERS: ATTEND Psychiatry & Neurology Neurology with Special Qualifications in Child Neurology
DX: C85.88 Other specified types of non-Hodgkin lymphoma, lymph nodes of multiple sites (principal)
CPT/HCPCS: 36415; 62270; 77003; 82607; 82746; 82945; 82947; 83916; 84157; 84165; 84443; 85651; 86038; 87071; 87075; 87102; 87252; 88112; 89051

== ENCOUNTER → 2019-07-08 | Outpatient (CLI) | payer OTHER ==
[2018-06-11 17:52] VITALS: BP 145/88
[~2019-07-08] MED LIST changes: +GADOTERATE 7.5 MMOL/15ML VIAL. IVP ONE
--- NOTE | 2019-07-08 13:59 | KCIC ---
BRAIN WO/W CONTRAST Date: 07/08/2019 8:45 AM Indication: Flores's palsy Comparison: None. Technique: Multiplanar multisequence MRI of the brain was performed with and without intravenous contrast using the standard protocol. 18 cc Dotarem contrast was administered intravenously during the exam. Findings: No acute infarct. No acute or chronic hemorrhage. The ventricles are normal in size and configuration without hydrocephalus. Normal symmetric enhancement of the facial nerve geniculate ganglia and tympanic segments. No convincing enhancement of the intracanalicular or cisternal segments, although limited by technique. The scalp and calvarium are normal. The pituitary and sella are normal. No Chiari malformation. The visualized upper cervical spine is normal. The visualized orbits and globes are normal. The visualized paranasal sinuses are clear. The mastoid air cells are clear. Normal flow voids within the vertebral, basilar, and internal carotid arteries indicating patency. IMPRESSION: 1. No acute infarct, hemorrhage, or mass. 2. No convincing abnormal enhancement along the expected course of the intracanalicular or cisternal segments of the facial nerves, although limited by technique. If there is need for more complete evaluation of the facial nerves, dedicated MRI of the internal auditory canals can be obtained. Normal symmetric enhancement of the facial nerve geniculate ganglia and tympanic segments. Electronically signed by: Sánchez Pham MD (07/08/2019 1:56 PM) [facility]
--- NOTE | 2019-07-10 08:50 | KCIC ---
CHEST WO CONTRAST History: Mononeuritis multiplex. Non-Hodgkin's lymphoma. Brachial neuritis. Bilateral upper extremities. Flores's palsy. Technique: Multiplanar, multi sequential MR imaging was performed of the brachial plexus bilaterally without contrast. Comparison: None Findings: No pathologic signal abnormality within the bilateral brachial plexus. Lack of contrast degrading evaluation for mass or active inflammation. T2/FLAIR hyperintensity within the left posterior aspect of the cervical spinal cord at the C5-C6 level, new compared to prior. Multilevel cervical spondylosis with multilevel canal and neuroforaminal narrowing better characterized on prior cervical spine MRI. Impression: 1. New signal abnormality within the left posterior aspect of the cervical cord at the C5-C6 level, may represent inflammatory/demyelinating lesion or edema. Recommend repeat cervical spine MRI with and without contrast to fully characterize. 2. No pathologic signal abnormality within within the region of the bilateral brachial plexus. If persistent clinical concern post contrast imaging can further evaluate for mass or inflammatory process. 3. Multilevel cervical spondylosis with multilevel canal and neural foraminal narrowing. Electronically signed by: Brendan Yost DO (07/10/2019 8:47 AM) [facility]
== END | disposition home or self-care (01) ==
LOC: KCIC MRI 08:27
PROVIDERS: ATTEND Psychiatry & Neurology Neurology with Special Qualifications in Child Neurology
DX: G51.0 Bell's palsy (principal); G58.7 Mononeuritis multiplex; C85.90 Non-Hodgkin lymphoma, unspecified, unspecified site; M47.812 Spondylosis without myelopathy or radiculopathy, cervical region; M48.02 Spinal stenosis, cervical region
CPT/HCPCS: 70553; 71550; A9575

== ENCOUNTER → 2019-07-15 | Outpatient (CLI) | payer OTHER ==
[2018-06-11 17:52] VITALS: BP 145/88
[~2019-07-15] MED LIST changes: -GADOTERATE 7.5 MMOL/15ML VIAL. IVP ONE; +IOHEXOL 180 MG/ML 10 ML VIAL. ONE; +methylPREDNISolone ACETATE 40 MG/ML VIAL. ONE; +methylPREDNISolone ACETATE 80 MG/ML VIAL. ONE
--- NOTE | 2019-07-16 05:33 | PAIN ---
DATE OF SERVICE: 07/15/2019 PROGRESS NOTE FOR PAIN CLINIC DIAGNOSES: Cervical radiculopathy with cervical degenerative disk disease and cervical spinal stenosis. HISTORY OF PRESENT ILLNESS: The patient is a 59-year-old male who returns for followup status post initial evaluation and preauthorization for cervical epidural steroid injection. The patient has obtained this now, would like to proceed. Still pain in the base of the neck, left upper extremity as it was previously without significant change. The patient reports still worse with activity, weightbearing, repetitive motions, raising his left hand over his head on left side. The patient reports the pain is an 8 on a scale of 10 at its worst in the past week, 5-6 on average, 5-6 at its least and is a 5-6 today. The patient reports dull, tingling, burning, cramping and shooting in the left arm, some on the right with some weakness more on the right, but tenderness on the left and pain on the left. The patient reports no new motor or sensory deficits, no new changes. Still waking up from sleep at night at least once or twice each night. PHYSICAL EXAMINATION: VITAL SIGNS: The patient's blood pressure 159/97, pulse 98, respirations 18, temperature 97.8 degrees Fahrenheit, height 6 feet, weight is 198 pounds. GENERAL: The patient is awake, alert, oriented, appropriate, very pleasant demeanor. HEENT: Shows normocephalic, atraumatic. Extraocular movements are intact and symmetrical. Oral cavity: Mucous membranes moist and pink. Dentition is intact. NECK: Shows anterior throat supple without palpable lymphadenopathy noted. Swallow reflex symmetrical. CHEST: Shows normal on inspection. Breath sounds are clear bilaterally. HEART: Shows S1, S2 clear. No murmurs auscultated. ABDOMEN: Soft, nontender, nondistended. BACK: Shows spine grossly in the midline. Normal-appearing thoracic kyphosis and lumbar lordotic curvature. The patient's cervical paraspinous muscle shows symmetrical on inspection; on palpation shows some moderate tenderness diffusely bilaterally and diffusely without significant radiation. The patient shows good rotational motion of cervical spine, both laterally as well as extension and flexion without significant difficulty. Full extension, full forward flexion as well. EXTREMITIES: Upper extremities show deep tendon reflexes 2+ in the biceps and triceps tendons. Motor exam is approximately 4 on a scale of 5 on the left and 5/5 on the right, but intact and symmetrical. Peripheral pulses are 2+ radial distribution. No peripheral edema is noted bilaterally. Options were discussed with the patient. The patient's old chart was reviewed, his current medication regimen updated. Current review of systems updated today as well. We will proceed with a cervical epidural steroid injection today with fluoroscopic guidance. Risks were again discussed including, but not limited to bleeding, infection, possibility of epidural hematoma, subsequent neurological compromise, dural puncture, headaches, spinal cord and/or nerve damage, side effects of steroid medication and poor results regarding pain control. The patient understands and wished to proceed. The patient will return to clinic in approximately 2 weeks for followup. He was counseled on return appointment, activity level and side effects to be aware of. DIAGNOSES: Cervical radiculopathy with cervical degenerative disk disease and cervical spinal stenosis. PROCEDURE: Cervical epidural steroid injection, translaminar approach C6-C7 level using C-arm fluoroscopic guidance under sterile prep and drape using local anesthetic. MEDICATION INJECTED: A total of 120 mg Depo-Medrol plus 5 mL of preservative-free normal saline and 2 mL of contrast. CONDITION AT DISCHARGE: Stable. MIKE LIMA MD DR: NACHO/roxann JOB#: [id number] / [id number]
== END ==
LOC: PNCL 14:11
PROVIDERS: ATTEND Anesthesiology
DX: M50.123 Cervical disc disorder at C6-C7 level with radiculopathy (principal); M48.02 Spinal stenosis, cervical region
CPT/HCPCS: 62321; J1030; J1040; Q9965

== ENCOUNTER → 2019-07-24 | Outpatient (CLI) | payer OTHER ==
[2018-06-11 17:52] VITALS: BP 145/88
[~2019-07-24] MED LIST changes: +GADOTERATE 7.5 MMOL/15ML VIAL. IVP ONE; -IOHEXOL 180 MG/ML 10 ML VIAL. ONE; +OXYC10SY PO; -methylPREDNISolone ACETATE 40 MG/ML VIAL. ONE; -methylPREDNISolone ACETATE 80 MG/ML VIAL. ONE
--- NOTE | 2019-07-24 14:09 | KCIC ---
MRI cervical spine with and without contrast 11/22/2018 INDICATION: Abnormality on recent MRI, non-Hodgkin's lymphoma. COMPARISON: MRI cervical spine 04/29/2019 TECHNIQUE: Multiplanar, multisequence MR imaging of the cervical spine was performed before and after the administration of intravenous contrast. FINDINGS: Stable alignment of the cervical spine. Minimal anterolisthesis of C3 on C4, C4 on C5 and C5 on C6. Moderate disc height loss at C6-C7 with endplate degenerative changes and moderate anterior marginal osteophytosis. Endplate degenerative changes appears stable compared to prior examination without significant interval change involving varying degrees of neuroforaminal or spinal canal stenosis. Examination, there is intrinsic T1 signal hyperintensity along the left posterior cord at C5-C6. This correlates with an area of nodular enhancement on postcontrast enhanced images which extends in the craniocaudal dimension approximately 1.4 cm extending from the inferior endplate of C5 to the mid C6 vertebral level. Enhancement is predominantly linear and along the left posterior cord extending into the left neuroforamen. Degree of T2 signal alteration appears new or increased since 04/29/2019. Redemonstration of a posterior disc osteophyte complex with central disc protrusion at C6-C7 with moderate right and mild left facet arthropathy and moderate uncovertebral joint disease resulting in moderate left and mild to moderate right neural femoral stenosis and moderate spinal canal stenosis. There is subtle deformity of the cord without definite cord signal alteration at this level. IMPRESSION: Nodular enhancement is noted along the left posterior hemicord at C5-C6 with associated intrinsic cord signal alteration on T2-weighted images. Remaining linear enhancement is identified on the left posterior cord extending into the left neural foramen. Findings may be associated with provided history of non-Hodgkin's lymphoma. Neurosarcoidosis may have similar appearance. Findings are atypical for demyelination, ischemic or post traumatic changes. Otherwise, moderate degenerative changes of the cervical spine appear stable. Electronically signed by: Yvette Ghotra MD (07/24/2019 2:06 PM) [facility]
== END | disposition home or self-care (01) ==
LOC: KCIC MRI 12:41
PROVIDERS: ATTEND Psychiatry & Neurology Neurology with Special Qualifications in Child Neurology
DX: M50.223 Other cervical disc displacement at C6-C7 level (principal); M25.78 Osteophyte, vertebrae; M12.88 Other specific arthropathies, not elsewhere classified, other specified site; C85.90 Non-Hodgkin lymphoma, unspecified, unspecified site; M48.02 Spinal stenosis, cervical region; Z87.891 Personal history of nicotine dependence
CPT/HCPCS: 72156; A9575

== ENCOUNTER → 2019-08-05 | Outpatient (CLI) | payer OTHER ==
[2018-06-11 17:52] VITALS: BP 145/88
[~2019-08-05] MED LIST changes: -GADOTERATE 7.5 MMOL/15ML VIAL. IVP ONE; +MORP-15 PO
--- NOTE | 2019-08-05 13:49 | PAIN ---
DATE OF SERVICE: 08/05/2019 PROGRESS NOTE FOR PAIN CLINIC DIAGNOSES: Cervical radiculopathy with cervical degenerative disk disease and cervical spinal stenosis. HISTORY OF PRESENT ILLNESS: The patient is a 59-year-old male who returns for followup status post cervical epidural steroid injection x 1. The patient returns, reports only improvement with his right hand, has slightly more strength and he has got more mobility in his fingers, especially his index finger. Otherwise, the pain is the same. No significant improvement in the pain, still radiating to the base of the neck and shoulders, left upper extremity, posterior deltoid, posterior biceps, posterior triceps and posterior forearm with numbness and tingling in the hands. The patient reports it is burning, cramping, tingling with aching pain that is becoming more constant in the base of the neck. The patient did have an MRI scan, which was performed in the meantime on 07/24/2019 showing nodular enhancement along the left posterior hemicord at C5-C6 with associated intrinsic cord signal alteration on T2-weighted images with remaining linear enhancement identified on the left posterior cord extending into the left neural foramen, possible association with previous non-Hodgkin's lymphoma. The patient reports he is following up with his neurologist and has IgG therapy scheduled in the near future as well. He is checking on that later today. The patient reports the pain wakes him from sleep on and off about every 6 hours or so. He is taking morphine as well as oxycodone, which decreases the pain, but only by about 50%. The patient reports that the pain has been a 10 on a scale of 10 at its worst over the past week, 6-7 on average, 5 at its least and is a 7 today. PHYSICAL EXAMINATION: VITAL SIGNS: The patient's blood pressure is 141/109, pulse 111, respirations are 18, temperature is 98.2 degrees Fahrenheit, weight is 197 pounds. GENERAL: The patient is awake, alert, oriented, appropriate, very pleasant demeanor. HEENT: Shows normocephalic, atraumatic. Extraocular movements are intact and symmetrical. The patient wears eyeglasses. Oral cavity shows mucous membranes moist and pink. NECK: Shows anterior throat supple without palpable lymphadenopathy noted. Swallow reflex is symmetrical. CHEST: Shows normal on inspection. Breath sounds are clear bilaterally. HEART: Shows S1, S2 clear. ABDOMEN: Soft, nontender, nondistended. BACK: Shows spine grossly in the midline. Normal-appearing thoracic kyphosis, cervical lordotic curvature and lumbar lordotic curvature. Cervical paraspinous muscle shows symmetrical on inspection and on palpation shows some moderate tenderness diffusely bilaterally going diffusely in the middle and lower distribution of the paraspinous musculature into the superior medial trapezius, more on the left than the right, without specific trigger points. The patient has good rotational motion of cervical spine, both laterally as well as extension and flexion without significant increase in pain. EXTREMITIES: The patient's upper extremities show deep tendon reflexes at 2+ in the biceps and triceps tendons. Motor exam is approximately 4 on a scale of 5 on the left and 4-5 on the left and likewise 4/5 on the right, which is slightly less strong than on previous exam. Although the patient's ability to form a fist on the right hand is improved with the index finger being more mobile than on previous exam as well. Peripheral pulses are 2+ in radial distribution. No peripheral edema is noted. PLAN: Options were discussed with the patient. The patient's old chart was reviewed as his current medication regimen updated. Current review of systems updated today as well and we will hold on any further injections. If the patient's pain is not significantly improved, he will follow up with his neurologist regarding MRI findings and IgG therapy, which is scheduled and follow up at this time on as needed basis. MIKE LIMA MD DR: NACHO/roxann JOB#: [id number] / [id number]
== END | disposition home or self-care (01) ==
LOC: PNCL 13:23
PROVIDERS: ATTEND Anesthesiology
DX: M50.10 Cervical disc disorder with radiculopathy, unspecified cervical region (principal); M48.02 Spinal stenosis, cervical region
CPT/HCPCS: G0463